=== PATIENT | female | born 1985 | race Caucasian/White ===

== ENCOUNTER → 2018-01-08 09:41 | Outpatient (CLI) | payer SELFPAY ==
[2018-01-10 09:30] LABS: Progesterone Level 38.51 ng/mL (See Comment)
[2018-01-10 09:42] LABS: Estradiol 147.2 pg/mL
== END ==
PROVIDERS: Visit Provider Obstetrics & Gynecology
DX: N92.6 Irregular menstruation, unspecified (principal); N91.4 Secondary oligomenorrhea
CPT/HCPCS: 36415; 82670; 84144

== ENCOUNTER → 2018-08-11 13:46 | Outpatient (CLI) | payer SELFPAY ==
[2018-08-17 19:33] LABS: HPV Reflexed? NOT INDICATED
== END ==
PROVIDERS: Visit Provider Obstetrics & Gynecology
DX: Z12.4 Encounter for screening for malignant neoplasm of cervix (principal)
CPT/HCPCS: 88175; G0145

== ENCOUNTER → 2019-07-18 09:47 | Outpatient (CLI) | payer OTHER, SELFPAY ==
[2019-07-18 10:52] LABS: Color, Urine Yellow (Yellow); Glucose, Dipstick Normal (Normal); Ketone-Dipstick Negative (Negative); Leukocyte Esterase-Dipstick Negative /ul (Negative); Nitrite-Dipstick Negative (Negative); Occult Blood-Urine Negative /ul (Negative); Protein-Dipstick Negative (Negative); Urine Bilirubin Dipstick Negative (Negative); Urine Clarity Clear (Clear); Urine Urobilinogen Normal (Normal)
[2019-07-18 10:54] LABS: Absolute Neutrophil Count 4.8 X10^3/uL (2.0-7.7); Basophil# 0.06 X10^3/uL; Basophil% 0.9 % (0-1); Eosinophil# 0.03 X10^3/uL; Eosinophils% 0.5 % (0-5); Hematocrit 40.2 % (37-47); Hemoglobin 13.4 g/dL (12.0-15.0); Lymphocyte % 18.8 % (19-41); Mean Corp Hgb Conc 33.3 g/dL (32-36); Mean Corpuscular Hgb 30.3 pg (27.0-32.0); Mean Platelet Vol. 11.8 fl (6.2-12.0); Monocyte# 0.28 X10^3/uL; Monocyte% 4.4 % (0-10); NRBC Flagged by Analyzer 0 % (0-5); Neutrophil # 4.78 X10^3/uL (2.7-7.7); Neutrophil % 75.1 % (47-70); Platelet Count 147 K/mm3 (150-450); RBC Distribution Width CV 11.9 % (11.6-14.6); RBC Distribution Width SD 39.5 fl (35.1-43.9); Red Blood Count 4.42 M/mm3 (4.2-5.4); White Blood Count 6.4 K/mm3 (4.4-11.0)
[2019-07-18 11:19] LABS: Thyroid Stim Hormone (TSH) 0.02 uIU/mL (0.358-3.74)
[2019-07-18 11:50] LABS: HIV - WCH Non-Reactive (Nonreactive); Hepatitis B Surface Antigen Non-Reactive (Nonreactive); Hepatitis C Antibody Non-Reactive (Nonreactive); Rubella IgG 153.3 IU/mL
[2019-07-18 14:30] LABS: Chlamydia Trachomatis by PCR Negative (Negative); Neisserai gonorrhoeae by PCR Negative (Negative); Probe Check PASS; Sample Adequacy Control PASS; Specimen Processing Control PASS
[2019-07-19 17:53] LABS: T4 Free Direct 1.51 ng/dL (0.76-1.46)
[2019-07-21 02:37] LABS: Prenatal RPR NONREACTIVE (NONREACTIVE)
== END ==
PROVIDERS: Visit Provider Advanced Practice Midwife
DX: Z34.81 Encounter for supervision of other normal pregnancy, first trimester (principal); Z11.3 Encounter for screening for infections with a predominantly sexual mode of transmission
CPT/HCPCS: 36415; 81002; 84439; 84443; 84481; 85025; 86703; 86762; 86803; 87340; 87491; 87591

== ENCOUNTER → 2019-11-14 | Outpatient (CLI) | payer OTHER, SELFPAY ==
[2019-11-14 15:40] LABS: Hematocrit 36.9 % (37-47); Hemoglobin 12.1 g/dL (12.0-15.0); Mean Corp Hgb Conc 32.8 g/dL (32-36); Mean Corpuscular Hgb 30.9 pg (27.0-32.0); Mean Corpuscular Volume 94.4 fL (81-99); Mean Platelet Vol. 11.8 fl (6.2-12.0); Platelet Count 162 K/mm3 (150-450); RBC Distribution Width SD 44.7 fl (35.1-43.9); Red Blood Count 3.91 M/mm3 (4.2-5.4); White Blood Count 8.6 K/mm3 (4.4-11.0)
[2019-11-14 16:04] LABS: Glucose Challenge Gest 1H 50g 104 mg/dL (70-140); Thyroid Stim Hormone (TSH) 0.99 uIU/mL (0.358-3.74)
== END | disposition home or self-care (01) ==
LOC: LABSPEC 15:29
PROVIDERS: Visit Provider Obstetrics & Gynecology
DX: Z34.83 Encounter for supervision of other normal pregnancy, third trimester (principal); R79.89 Other specified abnormal findings of blood chemistry
CPT/HCPCS: 82950; 84443; 85027

== ENCOUNTER → 2020-01-05 | Outpatient (CLI) | payer SELFPAY | END | disposition home or self-care (01) | LOC: LABSPEC 14:44 | PROVIDERS: Referring Provider Obstetrics & Gynecology; Visit Provider Obstetrics & Gynecology | DX: Z36.85 Encounter for antenatal screening for Streptococcus B (principal) | CPT/HCPCS: 87077; 87081; 87186 ==

== ENCOUNTER 2020-01-22 04:00 | Inpatient (IN) | payer SELFPAY ==
[2020-01-22] VITALS (34 sets, daily range): BP systolic 101–158; BP diastolic 53–77; PULSE 54–84; RESP 14–16; TEMP 36.4–37.2; O2SAT 99–100; BMI 30.5
[2020-01-22 03:54] LABS: ROM Internal Control Test YES-OK TO RESULT pt. (Internal QC)
[2020-01-22 03:55] LABS: ROM Patient Test POSITIVE (Negative)
[2020-01-22] MEDS: Lactated Ringers 1,000 ML 50 ML IV (04:20)
[2020-01-22 04:39] LABS: Basophil# 0.03 X10^3/uL; Basophil% 0.4 % (0-1); Eosinophil# 0.06 X10^3/uL; Eosinophils% 0.9 % (0-5); Hematocrit 36.5 % (37-47); Lymphocyte % 21.4 % (19-41); Mean Corp Hgb Conc 32.9 g/dL (32-36); Mean Corpuscular Volume 91.3 fL (81-99); Mean Platelet Vol. 12.6 fl (6.2-12.0); Monocyte# 0.38 X10^3/uL; Monocyte% 5.4 % (0-10); NRBC Flagged by Analyzer 0 % (0-5); Neutrophil # 5.02 X10^3/uL (2.7-7.7); Neutrophil % 71.5 % (47-70); Platelet Count 143 K/mm3 (150-450); RBC Distribution Width CV 13.4 % (11.6-14.6); RBC Distribution Width SD 44.5 fl (35.1-43.9)
--- NOTE | 2020-01-22 08:02 | HP.PCM_ITS ---
- Problem List (1) 38 weeks gestation of Status: Acute (2) Spontaneous rupture of amniotic membranes Status: Acute History Date of Admission: 01/22/20 Final ZION: 01/30/20 Final ZION Source: LMP Gestational age: 38 Weeks and 6 Days History of this : This is a 34 year-old, G [3], P [2], at 38 weeks gestational age with SROM at 0150. Allergies Sulfa (Sulfonamide Antibiotics) Allergy (Verified 04/22/14 04:55) Other sulfamethoxazole [From Septra] Allergy (Verified 01/22/20 03:49) Rash trimethoprim [From Septra] Allergy (Verified 01/22/20 03:49) Rash Home Medications: Home Medications Vits [Prenatabs FA ] 1 tablet PO DAILY 04/22/14 Smoking Status: Never smoker Alcohol: None Number of Fetus(es): 1 NST - FHR Rate Baby A Baseline: 150 Variability:: Moderate Accelerations:: 15 x 15 Decelerations:: None NST Reactive:: Yes FHR Category:: Category I Uterine Activity:: irregular 4-6m History Past Pregnancies: PAST #1: Date of :.................. 03/31/12 Gestation Weeks:................ 41 Length of labor(hours):......... 12 Sex:............................ F Weight-lbs:............... 7 Weight-oz:................ 5 Type of Delivery:............... Vag Type of Anesthesia:............. Epidural Place of Delivery:.............. [place] Treatment of Labor?:.... No Comment: PAST #2: Date of :.................. 04/22/14 Gestation Weeks:................ 38 Length of labor(hours):......... 4 Sex:............................ M Weight-lbs:............... 5 Weight-oz:................ 11 Type of Delivery:............... Vag Type of Anesthesia:............. Local Place of Delivery:.............. [place] Treatment of Labor?:.... No Comment: GBS+ Labs: Mom's Labs & Results 01/22/20 01/22/20 01/22/20 03:40 04:20 04:20 WBC 7.0 RBC 4.00 L Hgb 12.0 Hct 36.5 L MCV 91.3 MCH 30.0 MCHC 32.9 RDW Std Deviation 44.5 H RDW Coeff of Chad 13.4 Plt Count 143 L MPV 12.6 H Immature Gran % (Auto) 0.400 Neut % (Auto) 71.5 H Lymph % (Auto) 21.4 Lamar % (Auto) 5.4 Eos % (Auto) 0.9 Baso % (Auto) 0.4 Absolute Neuts (auto) 5.0 Absolute Lymphs (auto) 1.50 Nucleated RBC % 0 Vag Amniotic Fld Detect POSITIVE H Blood Type AB POSITIVE Antibody Screen NEGATIVE Course Did the patient receive Yes care? Labs Blood Type: AB RH: POSITIVE RPR/VDRL/Syphilis Nonreactive Rubella status Immune HbSAg Negative Date Done: 07/18/19 Chlamydia Negative Gonorrhea Negative HIV/AIDS Non-Reactive Group B Strep: Positive Current Obstetrical History Gestational Diabetes No Incompetent Cervix No Infertility No IUGR No Macrosomia No Hypertension/Pre-eclampsia No Placenta Previa/Abruption No PTL/PROM No Uterine anomaly No Oligohydramnios No Polyhydramnios No Multiple gestation No Past Medical History Asthma No Diabetes No Hypertension No Heart disease No Mitral valve prolapse No Neurologic/Seizure disorder/ No Migraines Kidney disease No Liver disease No Varicosities Yes: right leg Clotting disorders/Hx of DVT No Thyroid Dysfunction No Other medical diseases No Psychiatric disorders No Major trauma No Abnormal PAP smear No Sleep apnea No Mammogram in the last 2 years No Social History Marital Status: Alleged father Abram Hx Smoking No Smoking Status Never smoker Expected Delivery Method: Spontaneous Vaginal Number of Visits: 9 Review of Systems Constitutional: Denies: Chills, Fever, Weight Change HEENT: Denies: Head Aches, Sinus Congestion, Sinus Drainage Cardiovascular: Denies: Chest Pain, Palpitations Respiratory: Denies: Cough, Shortness of breath at rest, Sputum production Gastrointestinal: Denies: Abdominal Pain, Nausea, Vomiting Genitourinary: Denies: Dysuria Musculoskeletal: Denies: Joint Pain, Joint Tenderness Skin: Denies: Rash, Wounds Neurological: Denies: Numbness, Tingling, Focal weakness Psychiatric: Denies: Anxiety, Depression, Homicidal Ideations, Suicidal Ideations Hematologic/ Lymphatic: Denies: Easy Bruising, Easy Bleeding Physical Exam Vitals: Vital Signs Temp Pulse BP Pulse Ox 97.6 F L 65 144/76 H 100 01/22/20 07:20 01/22/20 07:20 01/22/20 07:20 01/22/20 07:20 General: Alert, Oriented x3, No apparent distress HEENT: Atraumatic, Normocephalic. Negative for: Thyromegaly, Lymphadenopathy Cardiovascular: Regular rate, Regular Rhythm Lungs: Clear to auscultation Abdomen: Bowel Sounds Present, Gravid Neurological: Deep Tendon Reflexes 2+/4 and Symmetrical, Neuro grossly intact LEAD JAVASCRIPT ENGINEER: Normal external genitalia. Negative for: Vulvar lesions Estimated gestational size: Appropriate for gestational size Presentation: Cephalic Cervix Dilation (cm): 6 Station: -2 Effacement (%): 75 Assessment/Plan All Active Problems 38 weeks gestation of (Acute) Spontaneous rupture of amniotic membranes (Acute) A/P: This is a 34 year-old, G [3], P [2], at 38 weeks gestational age. SROM at 0150 Reactive NST, category I Active labor Plans unmedicated Expect
[2020-01-22] MEDS: Oxytocin 30 units/NS 500 ml 30 UNITS/500 ML IV.SOLN IV (12:29)
[2020-01-22] MEDS: Oxytocin 30 units/NS 500 ml 30 UNITS/500 ML IV.SOLN 334 UNITS IV (14:48)
--- NOTE | 2020-01-22 15:14 | PCM.OPRPT ---
Problem List (1) 38 weeks gestation of Status: Acute (2) Spontaneous rupture of amniotic membranes Status: Acute Vaginal Delivery Maternal Presentation: Active Labor Amniotic Membrane Rupture Type: Spontaneous at home Rupture of Membrane time: 0150 Amniotic Fluid Description: Clear Final ZION: 01/30/20 Gestational age: 38 Weeks and 6 Days Date of Procedure: 01/22/20 Pre-Operative Diagnosis: Labor Post-Operative Diagnosis: S/P Surgery/ Procedure Performed: Spontaneous Vaginal Delivery Type of Anesthesia: None Description of Procedure: Patient had spontaneous urge to push with anterior lip present. Upon writers arrival to room 10/100/+2. Patient pushed twice to deliver head in OA to CRIS with body following spontaneously. Double arm compound presentation. The male was placed on the maternal abdomen and further attended by nursery personnel with bulb suction and stimulation. The cord was doubly clamped then cut by FOB under CNM supervision at approximately 3 minutes of life. IV Pitocin started per protocol. With gentle cord traction spontaneous delivery of placenta. Fundal massage given, noted to be firm, very low and midline.First degree right labial to perineal extension and first degree left upper labial lacerations noted. Borders approximated and good hemostasis noted. No repairs needed. EBL 25. Sponge count correct x2. Apgars 8/9. Presentation: Vertex, CRIS Placental Delivery Description: Spontaneous Placenta Disposition: [facility] Cord Vessel Description: 3 Vessels Cord Entanglement: None Estimated Blood Loss: 25 A gender: Male (1 minute): 8 (5 minute): 9 Episiotomy Description: None Laceration: 1st degree - right labial/perineal and left labial Medications given after delivery: IV Pitocin
[2020-01-22] MEDS: 0.9% Saline Lock 10 ML Syringe IV (17:26)
[2020-01-23 03:41] VITALS: BP 121/77; PULSE 63; RESP 14; TEMP 36.6
[2020-01-23 08:02] VITALS: BP 118/74; PULSE 68; RESP 16; TEMP 36.6
--- NOTE | 2020-01-23 08:18 | PCM.PN.OB ---
Patient Problems: Active and Suspected Problems 38 weeks gestation of (Acute) Spontaneous rupture of amniotic membranes (Acute) Subjective: Feeling really well. States is going well now. Had to spoon feed a little last night, but he's a champ now. Denies heavy bleeding or feelings of sadness. Objective: VSS. Lochia rubra moderate. Fundus firm, midline, u/1. - Physical Exam Vitals/I&O's: Vital Signs Temp Pulse Resp BP Pulse Ox 97.9 F 68 16 118/74 100 01/23/20 08:02 01/23/20 08:02 01/23/20 08:02 01/23/20 08:02 01/22/20 15:03 Oxygen Delivery Method Room Air Weight: 80.739 kg Body Mass Index (BMI) 30.5 Intake and Output for Last 24 Hours 01/21/20 01/22/20 01/23/20 23:59 23:59 23:59 Intake Total 2098.74 / 2098.74 Output Total 1500 / 1500 Balance 598.74 / 598.74 General: Alert, Oriented x3, Cooperative HEENT: Atraumatic, PERRLA, EOMI, Normocephalic Neck: Supple, No JVD, Negative Carotid Bruits Lungs: Clear to auscultation, Normal air movement Cardiovascular: Regular rate, No murmurs Abdomen: Bowel Sounds Present, Soft, Non Tender Extremities: No edema, Capillary Refill Less than 3 Seconds Skin: No rashes, No breakdown Musculoskeletal: No Tenderness to Palpation of Joints or Extremities Neurological: Cranial nerves II-XII grossly intact Psych/Mental Status: Normal Affect, Appropriate Current Medications Acetaminophen (Tylenol) 1,000 mg PO Q8H PRN PRN PRN Reason: Pain Score 1-3/10 Bisacodyl (Dulcolax) 10 mg RECTAL UD PRN PRN Reason: If no BM Hydrocortisone (Hytone) 1 applic TOPICAL TID PRN PRN; Protocol PRN Reason: Discomfort Ibuprofen (Motrin) 600 mg PO Q6H PRN PRN PRN Reason: Pain Score 1-3/10 Methylergonovine Maleate (Methergine) 0.2 mg IM X1 PRN PRN Reason: Excess bleeding/uterine atony Ondansetron HCl (Zofran) 4 mg IV Q4H PRN PRN PRN Reason: Nausea Oxycodone HCl (Oxyir) 5 - 10 mg PO Q4H PRN PRN PRN Reason: Pain Score 4-10/10 Senna/Docusate Sodium (Senokot-S, Nanci-Colace) 1 - 2 tablet PO DAILY PRN PRN PRN Reason: Constipation Simethicone (Mylicon) 80 mg PO PCHS PRN PRN Reason: Indigestion/Stomach pain Sodium Chloride () 5 - 15 ml IV UD PRN PRN Reason: SALINE FLUSH Last Admin: 01/22/20 17:26 Dose: 10 ml Documented by: Throat Lozenges (Dermoplast (Sp)) 1 applic TOPICAL 4X/DAY PRN PRN; Protocol PRN Reason: Pain/Inflammation Last Admin: 01/22/20 18:41 Dose: 1 applic Documented by: Medical Necessity - Tobacco Use Smoking Status: Never smoker Assessment/Plan All Active Problems 38 weeks gestation of (Acute) Spontaneous rupture of amniotic membranes (Acute) A/P: S/P day #1 Normal course Denies pain Using Dermoplast for vaginal burning with urination and plans to continue at home well Son ([place]) to be circumcised today Will discharge today after 24H
--- NOTE | 2020-01-23 08:24 | DCINST_ITS ---
Discharge Diet: No Restrictions Discharge Activity: Return to Normal Activity, May not drive while taking narcotic pain medications., May Shower May resume sexual activity in: 4-6 weeks Additional Activity Instructions:: Nothing in the vagina for 4-6 weeks. You may return to work/school in 6 weeks. Call your doctor if your incision/area has: Continuous Slow Oozing, Sudden Increased Bleeding, Increased Pain/ Swelling, Increased Redness, Foul Smelling Discharge Additional Instructions: If you experience any of the following, contact your healthcare provider. * Bleeding that soaks a pad every hour for 2 hours * Fever 100.4 or higher * Unrelieved incision or abdominal pain * Swelling, redness, discharge or bleeding from your incision or episiotomy site * Your incision begins to separate * Problems urinating (including inability to urinate or burning while urinating). * Visual changes * Severe headache * Flu-like symptoms * Pain or redness in one of both of your breasts * Pain, warmth, tenderness or swelling in your legs, especially the calf area * Frequent nausea and vomiting * Symptoms of depression or anxiety If you experience any of the following, call 911 or go to the nearest Emergency Room. * Chest pain * Problems breathing * Seizure activity * Partial or complete paralysis of a body part, slurred speech, weakness or drooping of the face, or a sudden inability to walk or hold your balance Allergies/Adverse Reactions: Allergies Sulfa (Sulfonamide Antibiotics) Allergy (Verified 04/22/14 04:55) Other sulfamethoxazole [From Septra] Allergy (Verified 01/22/20 03:49) Rash trimethoprim [From Septra] Allergy (Verified 01/22/20 03:49) Rash Medications to take at Discharge Vits [Prenatabs FA ] 1 tablet PO DAILY 04/22/14 Please Follow Up With: Bethany Orourke CNM When: Call to make an appointment with your CNM at 2 weeks for a telephone appointment and 6 weeks for an in person visit. If having s/s of post depression to call immediately. Primary Care Physician: Care Physician,No Primary [Primary Care Provider] - Test Results: Test results from this visit will be discussed in further detail at your follow- up appointment, if applicable.
[2020-01-23 12:30] VITALS: BP 120/72; PULSE 68; RESP 14; TEMP 36.7
[2020-01-23 16:00] VITALS: BP 129/78; PULSE 68; RESP 16; TEMP 36.7
== END 2020-01-23 17:45 | disposition home or self-care (01) | DRG 807 ==
LOC: WPOUT 04:01 → WP 04:01
PROVIDERS: Admitting Provider Obstetrics & Gynecology; Referring Provider Obstetrics & Gynecology; Visit Provider Obstetrics & Gynecology
DX: O99.824 Streptococcus B carrier state complicating childbirth (principal); Z37.0 Single live birth; O32.6XX0 Maternal care for compound presentation, not applicable or unspecified; O70.0 First degree perineal laceration during delivery; Z3A.38 38 weeks gestation of pregnancy
CPT/HCPCS: 59025; 59050; 84112; 85025; 86850; 86900; 86901; 99218; J7120; A4216; G0378

== ENCOUNTER → 2021-07-15 | Outpatient (CLI) | payer SELFPAY ==
[2021-07-18 15:59] LABS: HPV APTIMA, High Risk Negative (Negative)
== END | disposition home or self-care (01) ==
LOC: LABSPEC 11:36
PROVIDERS: Visit Provider Student in an Organized Health Care Education/Training Program
DX: Z12.4 Encounter for screening for malignant neoplasm of cervix (principal)
CPT/HCPCS: 87624; 88175; G0145

== ENCOUNTER 2022-06-14 00:56 | Inpatient (IN) | payer SELFPAY ==
[2022-06-14] VITALS (26 sets, daily range): BP systolic 119–160; BP diastolic 60–86; PULSE 47–67; RESP 15–16; TEMP 36.1–36.7; O2SAT 96–100; BMI 30.9
[2022-06-14] MEDS: Lactated Ringers 1,000 ML 50 ML IV (01:05)
[2022-06-14 01:20] LABS: ROM Internal Control Test YES-OK TO RESULT pt. (Internal QC)
[2022-06-14 01:21] LABS: ROM Patient Test POSITIVE (Negative)
[2022-06-14 01:25] LABS: Absolute Lymphocyte Count 2.76 X10^3/uL (0.83-4.51); Absolute Neutrophil Count 4.2 X10^3/uL (2.0-7.7); Basophil# 0.05 X10^3/uL; Basophil% 0.7 % (0-1); Eosinophil# 0.07 X10^3/uL; Eosinophils% 0.9 % (0-5); Hematocrit 41.3 % (37-47); Hemoglobin 13.6 g/dL (12.0-15.0); Lymphocyte # 2.76 X10^3/ul (0.83-4.51); Lymphocyte % 36.4 % (19-41); Mean Corp Hgb Conc 32.9 g/dL (32-36); Mean Corpuscular Hgb 31.6 pg (27.0-32.0); Mean Corpuscular Volume 95.8 fL (81-99); Mean Platelet Vol. 13.7 fl (6.2-12.0); Monocyte# 0.46 X10^3/uL; Monocyte% 6.1 % (0-10); NRBC Flagged by Analyzer 0 % (0-5); Neutrophil # 4.22 X10^3/uL (2.7-7.7); Neutrophil % 55.5 % (47-70); Platelet Count 112 K/mm3 (150-450); RBC Distribution Width CV 13.6 % (11.6-14.6); RBC Distribution Width SD 47.6 fl (35.1-43.9); Red Blood Count 4.31 M/mm3 (4.2-5.4); White Blood Count 7.6 K/mm3 (4.4-11.0)
[2022-06-14] MEDS: Oxytocin 30 units/NS 500 ml 30 UNITS/500 ML IV.SOLN 334 UNITS IV (02:10)
--- NOTE | 2022-06-14 02:24 | OP.PCM_ITS ---
Vaginal Delivery Maternal Presentation Maternal Presentation: Active Labor and Spontaneous Rupture of Membranes Operative Information Date of Procedure: 06/14/22 Pre-Operative Diagnosis: post term 41 weeks, active labor, SROM Post-Operative Diagnosis: same, live male infant Surgery / Procedure Performed: Spontaneous Vaginal Delivery Type of Anesthesia: None Estimated Blood Loss: 200 Time of Delivery: 02:08 Findings Description of Procedure: SROM at approximately 11:15 PM on 06/13/2022. Patient arrived on the unit shortly before 1 AM on 06/14/2022 at that time she was 6 to 7 cm. Patient quickly progressed to fully dilated 100%. I was called and upon my arrival p atient was complete +2 station. Good maternal pushing efforts delivered the infant's head followed by the anterior and posterior shoulders and the rest infant's body. The infant was then delivered and placed on mother's chest for immediate skin to skin. Infant was vigorous at time of delivery. Delayed cord clamping was performed mouth and nose were suctioned. Placenta was then delivered without complication and intact. Inspection of the vaginal tissue revealed a small first-degree vaginal laceration with pressure bleeding was stopped and good hemostasis appreciated. No sutures indicated. Presentation: Vertex Amniotic Membrane Rupture Type: Spontaneous Amniotic Fluid Description: Clear Placental Delivery Description: Spontaneous Placenta Disposition: [facility] Specimen(s) Removed: Placenta Cord Entanglement: None Infant A Gender: Male (1 minute): 8 (5 minute): 9 Delayed Cord Clamping: Yes Post Vaginal Delivery Medications Given After Delivery: IV Pitocin Episiotomy Description: None Laceration: Vaginal Extension/lac and 1st degree Complication Complications: None
--- NOTE | 2022-06-14 02:29 | HP.PCM.OB_ITS ---
HPI - General General Date of Admission: 06/14/22 Date of Service: 06/14/22 HPI Narrative PAULA CASTILLO, is a 36 F @ 41 weeks who presents with SROM and active labor [facility] Medical History (Updated 06/14/22 @ 02:[address] Moriah Arteaga MD) Superficial varicosities Home Medications vits,calcium no.78-iron fumarate-folic acid 29 mg-1 mg tablet (Prenatabs FA) 1 tab PO DAILY 04/22/14 [History Last Taken 06/13/22 08:00] Allergy/AdvReac Type Severity Reaction Status Date / Time Sulfa (Sulfonamide Allergy Other Verified 06/14/22 00:46 Antibiotics) sulfamethoxazole Allergy Rash Verified 06/14/22 00:46 [From ] trimethoprim [From ] Allergy Rash Verified 06/14/22 00:46 Surgical History (Updated 06/14/22 @ 01:20 by Lyssa Sands) History of surgery Social History Smoking Status: Never smoker History Elective abortions Hx Para 3 Spontaneous abortions Hx # Term Pregnancies Ectopic pregnancies Hx # Pregnancies Multiple births # of living children Vital Signs Vital Signs Vital Signs: 06/14/22 00:43 06/14/22 00:44 06/14/22 00:44 Temperature Temperature Source Temporal Pulse Rate 54 L Blood Pressure 154/81 H BP Systolic 154 BP Diastolic 81 Pulse Ox 06/14/22 00:43 06/14/22 00:43 06/14/22 02:19 Temperature 97.4 F L Temperature Source Pulse Rate Blood Pressure 136/63 H BP Systolic 136 BP Diastolic 63 Pulse Ox 96 06/14/22 02:19 06/14/22 02:19 06/14/22 02:19 Temperature Temperature Source Pulse Rate 67 62 Blood Pressure BP Systolic BP Diastolic Pulse Ox 100 06/14/22 02:24 06/14/22 02:24 Temperature Temperature Source Pulse Rate 65 Blood Pressure BP Systolic BP Diastolic Pulse Ox 98 Weight Weight: 81.8 kg Body Mass Index (BMI) 30.9 Physical Exam Const alert and oriented x3 General Appearance: cooperative HEENT normocephalic GI GI Narrative: Gravid, non tender to palpation. OB / External & Speculum: external exam normal Extremity normal to inspection Skin no rashes or lesions noted Neuro oriented x3 and CN's II-XII intact bilaterally Psych Appearance: grossly normal Labs Labs Labs: Blood Type AB POSITIVE Antibody Screen NEGATIVE Hct 41.3 % (37-47) Hgb 13.6 g/dL (12.0-15.0) Rubella IgG Antibody 153.3 IU/mL Hep Bs Antigen Non-Reactive (Nonreactive) HIV 1&2 Antibody Non-Reactive (Nonreactive) Glucose 1 Hr 50 gm 104 mg/dL (70-140) Group B Strep DNA POSITIVE (Negative) H Rhogam given: No Assessment & Plan (1) 41 weeks gestation of : (2) Positive GBS test: (3) SROM (spontaneous rupture of membranes): PLAN: Plan Admit to L&D [place] FHR/TOCO Epidural if requested for pain Monitor VS Anticipate gbs prophylaxis - did not receive in time
[2022-06-15 01:54] VITALS: BP 149/77; PULSE 55; O2SAT 100
[2022-06-15 01:56] VITALS: BP 149/77; PULSE 54; RESP 15; TEMP 36.6; O2SAT 100
[2022-06-15 07:43] VITALS: BP 136/78; PULSE 54
[2022-06-15 08:03] VITALS: BP 136/78; PULSE 54; RESP 16; TEMP 36.4
[2022-06-15 14:00] VITALS: BP 116/60; PULSE 55; RESP 16; TEMP 36.6; O2SAT 100
--- NOTE | 2022-06-15 16:30 | CASEMGMT ---
Social Work Labor and Delivery ? Date of Intervention:?06.15.2022 Time of Intervention:?Approximately 1600 ? Reason for Referral:?Baby admitted to [facility] ? Informant: Medical records and mother of baby (MOB) Linda Gutierrez ? History: MOB is a 36 year old female, to the father of baby (FOB) Abram Gutierrez. ?MOB is G4, P3 to 4 after delivery of patient Aris Gutierrez (06.14.2022). ?Infant was admitted to the [facility] for issues related to Bradypnea. ? weight 8 pounds 5 ounces. Apgars 8 and 9 at 1 and 5 minutes of life respectively. Other children at home include: Mariela (03.31.2012), Godwin (04.17.2014), and [place] Gutierrez (01.21.2022). ?MOB denies any domestic or intimate partner violence in relationship with the FOB. 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 Currently is at home with the children. 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 ?MOB denies any substance use issues for self or for the FOB. Reports some baby blues after the older children, but reports the blues were short in duration and not severe. No history of any thoughts, plans, attempts at suicide. ?No reports of any agency involvement. ? ? Impression: Met with MOB at infant's bedside in the [facility]. 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 MOB attending to infant, providing care, and appearing appropriate and gentle. ?MOB held good eye contact, smiled at appropriate times, full affect. ?MOB reports to have all necessary supplies to care for infant at home including safe sleep spaces and a car seat. ?MOB is breast feeding. ?MOB reports to have good support from family and FOB plans to be at home when MOB and baby discharge home, so can help with transition home. ?MOB denies any needs or concerns with home going. ?Talked about depression and anxiety, risk factors, that mother and fathers can both be impacted. ?MOB expressed appreciation for checking in and agrees to take some information home in case needed in the future. ? Plan MOB discharged. SW following family from the [facility]. ?Will follow up with MOB on home going information on depression and anxiety. ? TOÑO Nicole
--- NOTE | 2022-06-15 17:23 | PN.OBGYN_ITS ---
Subjective Subjective Doing well per patient and nursing staff. Ambulating and taking PO without difficulty. Voiding and passing flatus. Pain controlled. , services for assistance. Baby in special care nursery. Denies headache, visual changes, chest pain, shortness of breath, leg pain or increased bleeding. Lochia normal. Objective Data Objective Data Vital Signs: Vital Signs Temp Pulse Resp BP Pulse Ox O2 Del Method 97.8 F 55 L 16 116/60 100 Room Air 06/15/22 14:00 06/15/22 14:00 06/15/22 14:00 06/15/22 14:00 06/15/22 14:00 06/15/22 14:00 Oxygen Delivery Method Room Air Weight: 180 lb 5.41 oz Body Mass Index (BMI) 30.9 Intake & Output: Intake and Output for Last 24 Hours 06/13/22 06/14/22 06/15/22 23:59 23:59 23:59 Intake Total 670 / 670 Balance 670 / 670 Lab / Micro Data Result Diagrams: 06/14/22 01:05 Micro: Microbiology 06/14/22 01:10 Nasal Secretion SARS-CoV-2 Antigen (Rapid) - Final ROS Constitutional Constitutional: Reports systems reviewed and no addt'l complaints, except as documented; Denies headache(s) Eyes Eyes: Denies acute decrease in peripheral vision, blurry vision or change in vision ENT HEENT: Reports systems reviewed and no addt'l complaints, except as documented Cardiovascular Cardiovascular: Denies chest pain or dizziness Respiratory/Chest Respiratory/Chest: Denies cough, dyspnea, dyspnea on exertion, shortness of casey ath at rest or shortness of breath with exertion Gastrointestinal Gastrointestinal: Denies abdominal pain, diarrhea, nausea or vomiting Genitourinary Genitourinary: Denies abdominal discomfort Musculoskeletal Musculoskeletal: Denies limited range of motion Integumentary Integumentary: Reports systems reviewed and no addt'l complaints, except as documented Neurologic Neurologic: Reports systems reviewed and no addt'l complaints, except as documented Psychiatric Psychiatric: Reports systems reviewed and no addt'l complaints, except as documented Endocrine Endocrinology: Reports systems reviewed and no addt'l complaints, except as documented Hematologic/Lymphatic Hematologic/Lymphatic: Reports systems reviewed and no addt'l complaints, except as documented Allergic/Immunologic Allergic/Immunologic: Reports systems reviewed and no addt'l complaints, except as documented Physical Exam Const alert and oriented x3 General Appearance: cooperative Orientation / Consciousness: awake, oriented to person, oriented to place and oriented to time Exam Limitations: no limitations HEENT normocephalic Head and Scalp: normal to inspection, normocephalic and atraumatic Face and Sinus: normal facial exam Eyes General Eye: normal appearance of both eyes Neck full ROM Chest Chest: symmetrical chest wall rise Resp normal respiratory effort and normal air movement GI non-tender appearance of the vagina normal Bladder / Kidney Exam: no CVA tenderness Back/Spine normal ROM Extremity normal to inspection and full ROM Skin no rashes or lesions noted Neuro oriented x3, CN's II-XII intact bilaterally and moves all extremities Sensorium / Orientation: awake, alert and oriented to person Motor Exam: clonus absent Deep Tendon Reflexes: Rt Patellar (L4): 2+ and Lt Patellar (L4): 2+ Assessment & Plan (1) Vaginal delivery: PLAN: Plan 1) PPD #1 2) Routine PP care 3) Vitals stable 4) Would like discharge to hotel status while baby is in special care nursery 5) Follow up in 2 weeks and 6 weeks PP 6) D/C
--- NOTE | 2022-06-15 17:27 | PCM.DC.SUM ---
Providers Date of Admission: 06/14/22 Primary Care Physician: Leta Primary Care Phys Reason For Visit: VAGINAL DELIVERY Diagnosis Discharge Diagnosis (1) Vaginal delivery: Status: Acute Code(s): O80 - Encounter for full-term uncomplicated delivery Plan 1) PPD #1 2) Routine PP care 3) Vitals stable 4) Would like discharge to hotel status while baby is in special care nursery 5) Follow up in 2 weeks and 6 weeks PP 6) D/C Medications at Discharge Home Medications vits,calcium no.78-iron fumarate-folic acid 29 mg-1 mg tablet (Prenatabs FA) 1 tab PO DAILY 04/22/14 acetaminophen 500 mg tablet 1,000 mg PO Q6H PRN PRN Pain 1-10 Or Fever #0 tabs 06/15/22 ibuprofen 600 mg tablet 600 mg PO Q6H PRN PRN Pain Score 1-3 #0 tabs 06/15/22 Weight / BMI Weight Weight: 180 lb 5.41 oz Body Mass Index (BMI) 30.9 ABG / Lab / Microbiology Data Result Diagrams: 06/14/22 01:05 Microbiology: Microbiology 06/14/22 01:10 Nasal Secretion SARS-CoV-2 Antigen (Rapid) - Final Meaningful Use Info Meaningful Use Diagnoses (Choose all that apply): None applicable Discharge Plan Admission Admit Date/Time: 06/14/22 00:56 Primary Reason for Your Visit: Vaginal delivery Attending Provider: Moriah Arteaga Primary Care Provider: Care Physician,No Primary Discharge Orders/Prescriptions Prescriptions: New acetaminophen 500 mg Tablet 1,000 mg PO Q6H PRN PRN (Reason: Pain 1-10 Or Fever) Qty: 0 0RF ibuprofen 600 mg Tablet 600 mg PO Q6H PRN PRN (Reason: Pain Score 1-3) Qty: 0 0RF Continued Prenatabs FA 1 TABLET tablet 1 tab PO DAILY Referrals / Follow Up: Virginia Herron CNM [Med Staff - Adv Practice Prof] - Care Physician,No Primary [Primary Care Provider] - (follow up in 2 weeks and 6 weeks for visit) Disposition Disposition (needs filled in before D/C Order can be placed): Home, Self Care
[2022-06-15 18:47] VITALS: BP 139/81; PULSE 54; RESP 18; TEMP 36.8; O2SAT 100
--- NOTE | 2022-06-16 09:49 | CASEMGMT ---
Validation of Advanced Directives Spoke with patient at [facility]'s bedside [facility] [place] [facility]. MOB reports to have a will, but not really certain about a Living Will. Educated MOB to purpose of health care advanced directives. MOB reports will have to talk to the father of baby (FOB), to see if these type of forms were ever completed or not. MOB reports really to be unsure. Educated MOB that if find health care advanced directives in the packet of documents from personal injury attorney to bring in to the hospital. Also educted MOB that this question of POAHC and Living Will will likely be asked of MOB again at any future hospitalizations. MOB expressed understaffing. -PHYLLIS Bean, TUBE CUTTER
== END 2022-06-15 18:50 | disposition home or self-care (01) | DRG 806 ==
LOC: WPOUT 01:00 → WP 01:00
PROVIDERS: Admitting Provider Obstetrics & Gynecology; Visit Provider Obstetrics & Gynecology
DX: O48.0 Post-term pregnancy (principal); Z37.0 Single live birth; O98.82 Other maternal infectious and parasitic diseases complicating childbirth; B95.1 Streptococcus, group B, as the cause of diseases classified elsewhere; Z3A.41 41 weeks gestation of pregnancy; O70.0 First degree perineal laceration during delivery
CPT/HCPCS: 59025; 59050; 84112; 85025; 86850; 86900; 86901; 87811; 99218; J7120; G0378

== ENCOUNTER 2024-08-31 02:52 | Inpatient (IN) | payer SELFPAY ==
[2024-08-31] VITALS (21 sets, daily range): BP systolic 108–141; BP diastolic 59–80; PULSE 59–84; RESP 14–20; TEMP 36.1–37.3; O2SAT 99–100; BMI 30.2
[2024-08-31] MEDS: 0.9% Saline Lock 10 ML Syringe IV (03:05)
[2024-08-31 03:28] LABS: Absolute Lymphocyte Count 1.49 X10^3/uL (0.83-4.51); Absolute Neutrophil Count 5.3 X10^3/uL (2.0-7.7); Basophil# 0.04 X10^3/uL; Basophil% 0.5 % (0-1); Eosinophil# 0.04 X10^3/uL; Eosinophils% 0.5 % (0-5); Hematocrit 38.8 % (37-47); Lymphocyte # 1.49 X10^3/ul (0.83-4.51); Lymphocyte % 20.5 % (19-41); Mean Corp Hgb Conc 33.5 g/dL (32-36); Mean Corpuscular Hgb 30.7 pg (27.0-32.0); Mean Corpuscular Volume 91.5 fL (81-99); Mean Platelet Vol. 12.7 fl (6.2-12.0); Monocyte# 0.38 X10^3/uL; Monocyte% 5.2 % (0-10); NRBC Flagged by Analyzer 0 % (0-5); Neutrophil # 5.29 X10^3/uL (2.7-7.7); Neutrophil % 72.8 % (47-70); Platelet Count 166 K/mm3 (150-450); RBC Distribution Width CV 14.1 % (11.6-14.6); RBC Distribution Width SD 46.7 fl (35.1-43.9); Red Blood Count 4.24 M/mm3 (4.2-5.4); White Blood Count 7.3 K/mm3 (4.4-11.0)
[2024-08-31 03:54] LABS: Syphilis Antibodies Non-reactive
[2024-08-31] MEDS: Oxytocin 10 UNITS/ML Vial IM (03:59)
[2024-08-31] MEDS: Oxytocin 15 Units/NS 250ml 15 UNITS/250 ML IV.SOLN 83 UNITS IV (03:59)
--- NOTE | 2024-08-31 04:06 | PCM.HP.OB ---
HPI - General General Date of Admission: 08/31/24 Date of Service: 08/31/24 Chief Complaint: labor HPI Narrative PAULA CASTILLO, is a 38 F who presents in active labor Maternal Data Information Final ZION: 09/02/24 Gestational age: 39+5 [facility] Medical History History of prior with IUGR Superficial varicosities Home Medications ?Medication ?Instructions ?Recorded ?Last Taken ?Type vits,calcium no.78-iron 1 tab PO DAILY 04/22/14 08/30/24 History fumarate-folic acid 29 mg-1 mg tablet (Prenatabs FA) Allergy/AdvReac Type Severity Reaction Status Date / Time Sulfa (Sulfonamide Allergy Other Verified 08/31/24 02:39 Antibiotics) sulfamethoxazole (From Allergy Rash Verified 08/31/24 02:39 Septra) trimethoprim (From Septra) Allergy Rash Verified 08/31/24 02:39 Family History Other Cystic fibrosis Surgical History History of surgery Social History Smoking Status: Never smoker History 5 Elective abortions Hx Para 4 Spontaneous abortions Hx # Term Pregnancies Ectopic pregnancies Hx # Pregnancies Multiple births # of living children NST FHR Rate Baby A Baseline: 135 Variability:: Moderate Accelerations:: 15 x 15 Decelerations:: None NST Reactive:: Yes FHR Category:: Category I Uterine Activity:: q 3 ROS Constitutional Constitutional: Denies fatigue, fever(s) or malaise Eyes Eyes: Denies change in vision ENT HEENT: Denies dizziness or headache(s) Cardiovascular Cardiovascular: Denies chest pain, dyspnea or lightheadedness Respiratory/Chest Respiratory/Chest: Denies cough or dyspnea Gastrointestinal Gastrointestinal: Denies change in bowel habits Genitourinary Genitourinary: Denies burning urination or genital lesions Integumentary Integumentary: Denies rash Neurologic Neurologic: Denies confusion, dizziness, headache(s), numbness or weakness Vital Signs Vital Signs Vital Signs: 08/31/24 02:37 08/31/24 02:37 08/31/24 02:37 Temperature Temperature Source Pulse Rate 74 79 Respiratory Rate Blood Pressure 122/74 H BP Systolic 122 BP Diastolic 74 Pulse Ox 08/31/24 02:37 08/31/24 02:37 08/31/24 02:37 Temperature Temperature Source Temporal Pulse Rate Respiratory Rate 14 Blood Pressure BP Systolic BP Diastolic Pulse Ox 100 08/31/24 02:37 08/31/24 03:44 08/31/24 03:44 Temperature 97.6 F L Temperature Source Pulse Rate 73 Respiratory Rate Blood Pressure BP Systolic BP Diastolic Pulse Ox 100 08/31/24 03:44 08/31/24 03:44 08/31/24 03:44 Temperature Temperature Source Temporal Pulse Rate 73 Respiratory Rate 16 Blood Pressure BP Systolic BP Diastolic Pulse Ox 08/31/24 03:44 08/31/24 03:44 08/31/24 03:45 Temperature 99.1 F Temperature Source Pulse Rate Respiratory Rate Blood Pressure 108/59 L BP Systolic 108 BP Diastolic 59 Pulse Ox 99 08/31/24 03:45 08/31/24 04:03 08/31/24 04:03 Temperature Temperature Source Pulse Rate 75 82 Respiratory Rate Blood Pressure 138/80 H BP Systolic 138 BP Diastolic 80 Pulse Ox 08/31/24 04:03 08/31/24 04:03 08/31/24 04:03 Temperature Temperature Source Temporal Pulse Rate 84 Respiratory Rate Blood Pressure BP Systolic BP Diastolic Pulse Ox 99 08/31/24 04:03 08/31/24 04:03 Temperature 97.3 F L Temperature Source Pulse Rate Respiratory Rate 17 Blood Pressure BP Systolic BP Diastolic Pulse Ox Weight Weight: 80.014 kg Body Mass Index (BMI) 30.2 Physical Exam Const alert and no apparent distress General Appearance: cooperative HEENT normocephalic Resp normal respiratory effort Cardio regular rate GI soft to palpation GI Narrative: gravid, nontender, appropriate for gestational age Extremity no calf tenderness General Extremity: edema Skin no wounds Rashes: No rashes noted Psych activity/motor behavior normal Labs Labs Labs: Blood Type AB POSITIVE Antibody Screen NEGATIVE Hct 38.8 % (37-47) Hgb 13.0 g/dL (12.0-15.0) Syphilis Total Ab Non-reactive Rubella IgG Antibody 153.3 IU/mL Hep Bs Antigen Non-Reactive (Nonreactive) Hepatitis C Antibody Non-Reactive (Nonreactive) HIV 1&2 Antibody Non-Reactive (Nonreactive) Glucose 1 Hr 50 gm 104 mg/dL (70-140) Group B Strep DNA POSITIVE (Negative) H Rhogam given: No Assessment & Plan (1) Normal labor:
--- NOTE | 2024-08-31 04:09 | EX.PCM.OBVAG ---
Assessment & Plan (1) Vaginal delivery: Maternal Data Information Final ZION: 09/02/24 Gestational age: 39+5 Vaginal Delivery Maternal Presentation Maternal Presentation: Active Labor Vaginal Delivery Information Procedure Performed: Spontaneous Vaginal Delivery Surgeon/Practitioner: Camila Cardona Date of Procedure: 08/31/24 Pre-Procedure Diagnosis: term labor Post-Procedure Diagnosis: Type of anesthesia: None Estimated Blood Loss: 100 cc Time of Delivery: 03:55 Findings Description of procedure: Presented in active labor. SROM at 9 cm. Patient quickly progressed to completed and pushed through one contraction to deliver the vertex in the OA presentation. The anterior and posterior shoulders delivered with ahsan traction. There was a short cord. The cord was clamped and cut, The infant than placed on the maternal abdomen. The placenta delivered with normal traction. There were no lacerations. All sponge and instrument counts were correct. Presentation: Vertex Amniotic Membrane Rupture Type: Spontaneous Amniotic Fluid Description: Clear Placental Delivery Description: Spontaneous Placenta Disposition: [facility] Specimen collected: No Cord Vessel Description: 3 Vessels Cord Entanglement: None Infant A Gender: Female (1 minute): 9 (5 minute): 10 Delayed Cord Clamping: Yes Impregnator And Drier energy efficiency finance manager: No Post Vaginal Deli Medications given after delivery: IV Pitocin and IM Pitocin Episiotomy Description: None Laceration: None Complication Complications: No
[2024-09-01 00:04] VITALS: BP 109/69; PULSE 57; RESP 17; TEMP 36.3; O2SAT 99
[2024-09-01 04:00] VITALS: BP 109/69; PULSE 57; RESP 16; TEMP 36.8; O2SAT 99
--- NOTE | 2024-09-01 06:49 | PCM.DC.SUM ---
Providers Date of Admission: 08/31/24 Primary Care Physician: No Primary Care Phys Reason For Visit: VAG Diagnosis Discharge Diagnosis (1) Vaginal delivery: Status: Acute Code(s): O80 - Encounter for full-term uncomplicated delivery Plan PPD 1 Routine care support D/C home with follow up in office Medications at Discharge Home Medications vits,calcium no.78-iron fumarate-folic acid 29 mg-1 mg tablet (Prenatabs FA) 1 tab PO DAILY 04/22/14 Hospital Course Operations None Procedures None Summary of Care Provided Minutes Spent on Discharge: 15 Hospital Course: Patient had vaginal delivery. Hospital course was uneventful. Physical Exam Narrative Patient seen at bedside. Denies pain. Ambulating and voiding without difficulty. Lochia decreased. Desires discharge home today. Const alert and oriented x3 General Appearance: Negative for in distress HEENT normocephalic Eyes General Eye: normal appearance of both eyes Neck General: normal visual inspection Chest Chest: symmetrical chest wall rise Resp normal respiratory effort and normal air movement Effort and Inspection: symmetric chest movement; Negative for tachypneic Auscultation: clear to auscultation bilaterally Cardio regular rate and regular rhythm Peripheral Pulses: pulses 2+ throughout GI normal to inspection, nondistended, normoactive bowel sounds Narrative: Ice to perineum OB / External & Speculum: vaginal bleeding and other Lochia decreasing Uterus Palpation: uterus fundus firm (Below U) Extremity normal to inspection, full ROM and normal capillary refill Skin no rashes or lesions noted Neuro oriented x3, CN's II-XII intact bilaterally and gait normal Psych mental status grossly normal, thought process normal and activity/motor behavior normal Weight / BMI Weight Weight: 176 lb 6.4 oz Body Mass Index (BMI) 30.2 ABG / Lab / Microbiology Data 08/31/24 03:00 Laboratory: Laboratory Results - last 24 hr 08/31/24 03:00: Antibody Screen NEGATIVE, Antibody Identification Cancelled D/C Instructions Discharge Diet: No restrictions Discharge Activity: Return to Normal Activity, No Restrictions, May Drive, May Shower and May Take a Tub Bath (Warm water only. No bath salts, soaps, bubbles) May resume sexual activity in: 6-8 weeks Weight Bearing Status: Weight bearing as tolerated Call your doctor if you observe: Fever of 101 or Higher, Inability to urinate, Using more than 1 pad per hour, Shortness of breath, Dizziness, Chest pain, Calf discomfort and Uncontrolled pain DC O2, CPAP, BIPAP Needs Additional Home O2 Discharge instructions: No DC home with Oxygen: No Please Follow Up With: [facility] When: 2 weeks in office or virtual Meaningful Use Info Meaningful Use Meaningful Use Diagnoses (Choose all that apply): None applicable Ischemic Stroke Statin Dosing Therapy Reference: STATIN DOSE THERAPY REFERENCE: * Patients > 75 years receive moderate or high dose statin therapy. * Patients 75 years or YOUNGER should receive HIGH intensity statin dose unless contraindicated. You will be required to document reason for non-treatment if statin daily dose does not meet guidelines. HIGH DOSE STATIN THERAPY DAILY Atorvastatin > than or = to 40 mg Rosuvastatin > than or = to 20 mg Amlodipine + Atorvastatin > than or = to 2.5/40 mg Ezetimibe + Simvastatin 10/80 mg Simvastatin 80mg Discharge Plan Admission Admit Date/Time: 08/31/24 02:52 Attending Provider: Camila Cardona Primary Care Provider: Care Physician,No Primary Discharge Orders/Prescriptions Prescriptions: No Action Prenatabs FA 1 TABLET tablet 1 tab PO DAILY Referrals / Follow Up: Anika Oneal CNM [Med Staff - Adv Practice Prof] - Care Physician,No Primary [Primary Care Provider] - Disposition Disposition (needs filled in before D/C Order can be placed): Home, Self Care
[2024-09-01 08:52] VITALS: BP 116/86; PULSE 71; RESP 16; TEMP 36; O2SAT 100
[2024-09-01] MEDS: FLU VACC 2024-25(6MOS UP)/PF 45 MCG/0.5 ML SYRINGE IM (10:00)
== END 2024-09-01 11:10 | disposition home or self-care (01) | DRG 807 ==
LOC: WP 02:53
PROVIDERS: Admitting Provider Obstetrics & Gynecology; Visit Provider Obstetrics & Gynecology
DX: O69.3XX0 Labor and delivery complicated by short cord, not applicable or unspecified (principal); Z37.0 Single live birth; Z23 Encounter for immunization; Z3A.39 39 weeks gestation of pregnancy
CPT/HCPCS: 59025; 59050; 85025; 86780; 86850; 86900; 86901; 90656; 99221; A4216; G0378